=== PATIENT | male | born 2000 | race Two or more races ===

== ENCOUNTER 2021-08-29 18:22 | Emergency (ER) | payer MEDICAID ==
[~2021-08-29] VITALS: Ht 180.3 cm; Wt 95.3 kg
[2021-08-29] MEDS ORDERED: TETANUS-DIPTH-ACEL PERTUSSIS 0.5ML SYR Tdap IM ONE (20:15)
[2021-08-29] MEDS ORDERED: HYDROcodone-ACET 5/325MG TAB PO ONE (23:00)
[2021-08-29 23:16] VITALS: BP 141/85
[2021-08-29] MEDS ORDERED: NEOMYCIN-BACITRACIN-POLYM 15GM TOP OINT TOP ONE (23:30)
== END 2021-08-29 23:52 | disposition home or self-care (01) ==
LOC: ER 18:22
DX: S06.0X0A Concussion without loss of consciousness, initial encounter (principal); S01.01XA Laceration without foreign body of scalp, initial encounter; V86.56XA Driver of dirt bike or motor/cross bike injured in nontraffic accident, initial encounter; Y93.89 Activity, other specified; Y92.89 Other specified places as the place of occurrence of the external cause; Y99.8 Other external cause status
CPT/HCPCS: 12002; 70450; 72125; 90715